=== PATIENT | male | born 1950 | race Caucasian/White ===

== ENCOUNTER → 2016-10-06 | Outpatient (CLI) | payer MEDICARE, OTHER ==
[~2016-10-06] MED LIST: ASCO10007 PO; BUDE10.2 INH; CHOL500015 PO; FISH12002 PO; GABA300C10 PO; IBUP200C8 PO; METH10003 PO; OXYC5CAP4 PO; PRED20TA PO; PRED5TAB PO; TRAM50TA2 PO; magnesium PO; vitamin b12 SL; zinc PO
== END | disposition home or self-care (01) ==
LOC: CFH 07:26
PROVIDERS: ATTEND Family Medicine
DX: I08.1 Rheumatic disorders of both mitral and tricuspid valves (principal); I37.1 Nonrheumatic pulmonary valve insufficiency
CPT/HCPCS: 93306

== ENCOUNTER → 2017-06-26 | Outpatient (CLI) | payer MEDICARE, OTHER ==
[~2017-06-26] MED LIST changes: +ASCO100019 PO; -ASCO10007 PO; +OXYC5CAP2 PO; -OXYC5CAP4 PO
== END | disposition home or self-care (01) ==
LOC: CFH 09:27
PROVIDERS: ATTEND Otolaryngology Facial Plastic Surgery
DX: J34.89 Other specified disorders of nose and nasal sinuses (principal)
CPT/HCPCS: 70486

== ENCOUNTER → 2017-08-24 | Outpatient (CLI) | payer MEDICARE, OTHER ==
[~2017-08-24] MED LIST changes: +CLOM50TA2 PO; +FINA5TAB4 PO; +LISI-167 PO; +TAMS-11 PO; +VITA1TAB19 PO; +[UNRECOGNIZED DRUG - REMARK] PO
[2017-08-24 10:41] LABS: MICROSCOPIC NOT IND
[2017-08-24 10:42] LABS: BASOPHILS # (AUTO) 0.06 x10^3/uL (0-0.1); BASOPHILS % (AUTO) 1 % (0-1); EOSINOPHILS # (AUTO) 0.29 x10^3/uL (0-0.4); EOSINOPHILS % (AUTO) 3 % (1-7); LYMPHOCYTES # (AUTO) 3.11 x10^3/uL (1-3.4); LYMPHOCYTES % (AUTO) 34 % (22-44); MD NO; MEAN CORPUSCULAR HEMOGLOBIN 31.9 pg (27.5-34.5); MEAN CORPUSCULAR HGB CONC 32.9 g/dL (33.2-36.2); MEAN CORPUSCULAR VOLUME 97.1 fL (81-97); MEAN PLATELET VOLUME 7.9 fL (7.4-10.4); MONOCYTES # (AUTO) 0.91 x10^3/uL (0.2-0.8); MONOCYTES % (AUTO) 10 % (2-9); NEUTROPHILS # (AUTO) 4.78 x10^3/uL (1.8-6.8); NEUTROPHILS % (AUTO) 52 % (42-75); PLATELET COUNT 280 x10^3/uL (130-400); RED BLOOD COUNT 4.78 x10^6/uL (4.38-5.82)
[2017-08-24 10:45] LABS: CULTURE INDICATED? NO
[2017-08-24 10:57] LABS: ALBUMIN 3.3 g/dL (3.4-5.0); ANION GAP 6 mmol/L (5-15); CALCIUM 8.4 mg/dL (8.5-10.1); CHLORIDE 108 mmol/L (98-107)
[2017-08-24 11:01] LABS: ALANINE AMINOTRANSFERASE 28 U/L (12-78); ALKALINE PHOSPHATASE 54 U/L (45-117); BILIRUBIN,TOTAL 0.5 mg/dL (0.2-1.0); CREATININE 0.83 mg/dL (0.7-1.3); TOTAL PROTEIN 6.9 g/dL (6.4-8.2)
== END | disposition home or self-care (01) ==
LOC: STAR 09:26
PROVIDERS: ATTEND Orthopaedic Surgery
DX: M17.11 Unilateral primary osteoarthritis, right knee (principal)
CPT/HCPCS: 36415; 80053; 81003; 85025; 87081

== ENCOUNTER 2017-09-02 06:59 | Inpatient (IN) | payer MEDICARE, OTHER ==
[2017-08-24 10:01] VITALS: BP 137/88
[~2017-09-02] VITALS: Ht 175.3 cm; Wt 95.9 kg
[2017-09-02] MEDS ORDERED: LACTATED RINGERS 1,000 ML IV SCH (07:29)
[2017-09-02] MEDS ORDERED: FENTANYL PF 100 MCG/2ML ONE (07:39)
[2017-09-02] MEDS ORDERED: MIDAZOLAM 1 MG/ML, 2ML ONE (07:39)
[2017-09-02] MEDS ORDERED: KETOROLAC 60 MG/2 ML ONE (09:27)
[2017-09-02] MEDS ORDERED: TRANEXAMIC ACID 100 MG/ML, 10ML ONE (09:28)
[2017-09-02] MEDS ORDERED: VANCOMYCIN 1,000 MG ONE (09:28)
[2017-09-02] MEDS ORDERED: ROPIvacaine/PF 0.2%, 20 ML ONE (09:28)
[2017-09-02] MEDS ORDERED: SODIUM CHLORIDE 0.9% 100 ML ONE (09:28)
[2017-09-02] MEDS ORDERED: EPINEPHRINE 1 MG/ML, 1ML ONE (09:28)
[2017-09-02] MEDS ORDERED: PHENYLEPHRINE 10 MG/ML ONE (09:36)
[2017-09-02] MEDS ORDERED: EPHEDRINE 50 MG/ML, 1ML ONE (09:36)
[2017-09-02] MEDS ORDERED: LABETALOL 5MG/ML, 20ML IV PRN (10:30)
[2017-09-02] MEDS ORDERED: FENTANYL PF 100 MCG/2ML IV PRN (10:30)
[2017-09-02] MEDS ORDERED: MIDAZOLAM 1 MG/ML, 2ML IV PRN (10:30)
[2017-09-02] MEDS ORDERED: OXYcodone 5 MG/5 ML ORAL.SOL UDC PO PRN (10:30)
[2017-09-02] MEDS ORDERED: METOCLOPRAMIDE 5 MG/ML, 2ML IV PRN (10:30)
[2017-09-02] MEDS ORDERED: PROMETHAZINE 12.5 MG SUPP PR PRN ×2 (10:30→11:30)
[2017-09-02] MEDS ORDERED: MEPERIDINE/PF 25MG/0.5ML IVPush PRN (10:30)
[2017-09-02] MEDS ORDERED: ACETAMINOPHEN 325 MG TABLET PO PRN (10:30)
[2017-09-02] MEDS ORDERED: ALBUTEROL/IPRATROPIUM 2.5MG/0.5MG, 3 ML NPPB PRN (10:30)
[2017-09-02] MEDS ORDERED: hydrALAzine 20 MG/ML, 1ML IV PRN (10:30)
[2017-09-02] MEDS ORDERED: ONDANSETRON 2MG/ML, 2ML IVPush PRN (10:30)
[2017-09-02] MEDS ORDERED: HYDROmorphone 1 MG/ML, 1ML IV PRN (10:30)
[2017-09-02] MEDS ORDERED: DIAZEPAM 5 MG/ML, 2ML IVPush PRN (10:30)
[2017-09-02] MEDS ORDERED: PROPOFOL 10 MG/ML, 20ML ONE (10:47)
[2017-09-02] MEDS ORDERED: ONDANSETRON 2MG/ML, 2ML ONE (10:47)
[2017-09-02] MEDS ORDERED: DEXAMETHASONE 4 MG/ML, 1ML ONE (10:47)
[2017-09-02] MEDS ORDERED: CEFAZOLIN 1,000 MG ONE (10:47)
[2017-09-02] MEDS ORDERED: PROPOFOL 50 ML ONE (10:52)
[2017-09-02] MEDS ORDERED: LIDOCAINE-MPF 2% ,5ML ONE (10:54)
[2017-09-02] MEDS ORDERED: BISACODYL 10 MG SUPP PR PRN (11:30)
[2017-09-02] MEDS ORDERED: LORazepam 1MG TABLET PO PRN (11:30)
[2017-09-02] MEDS ORDERED: ALUMINUM/MAG/SIMETHICONE 30 ML UDC PO PRN (11:30)
[2017-09-02] MEDS ORDERED: DIPHENHYDRAMINE 25 MG CAPSULE PO PRN (11:30)
[2017-09-02] MEDS ORDERED: MAGNESIUM HYDROXIDE 8%, 30ML UDC PO PRN (11:30)
[2017-09-02] MEDS ORDERED: PROMETHAZINE 25 MG/ML, 1ML IM PRN (11:30)
[2017-09-02] MEDS ORDERED: ONDANSETRON 4 MG TABLET PO PRN (11:30)
[2017-09-02] MEDS: ACETAMINOPHEN 650 MG/20.3 ML UDC PO SCH ×2 (11:30→19:30)
[2017-09-02] MEDS ORDERED: ONDANSETRON 2MG/ML, 2ML IV PRN (11:30)
[2017-09-02] MEDS ORDERED: SENNA/DOCUSATE TABLET PO PRN (11:30)
[2017-09-02] MEDS ORDERED: TRANEXAMIC ACID 1,000 MG in SODIUM CHLORIDE 0.9% 100 ML IVPB ONE (11:30)
[2017-09-02] MEDS ORDERED: DIAZEPAM 5 MG TABLET PO PRN (11:30)
[2017-09-02] MEDS ORDERED: ACETAMINOPHEN 650 MG/20.3 ML UDC ONE (11:44)
[2017-09-02] MEDS: OXYcodone IR 5MG TABLET PO PRN ×2 (13:58→20:51)
[2017-09-02] MEDS: D5%-0.45% NACL 1,000 ML IV SCH ×2 (14:36→22:06)
[2017-09-02] MEDS ORDERED: HYDROmorphone 2 MG/ML, 1ML ONE ×3 (15:50→23:06)
[2017-09-02] MEDS: HYDROmorphone 1 MG/ML, 1ML IV PRN ×3 (15:56→23:21)
[2017-09-02] MEDS: CEFAZOLIN PMX 2GM/50ML 50 ML IVPB SCH (18:34)
[2017-09-02] MEDS: ASPIRIN 81 MG TABLET EC PO SCH (18:34)
[2017-09-02] MEDS ORDERED: ZOLPIDEM 5MG TABLET PO PRN (21:00)
[2017-09-02 21:49] VITALS: BP 143/74
[2017-09-02] MEDS: DOCUSATE 100 MG CAPSULE PO SCH (23:20)
[2017-09-03] MEDS ORDERED: HYDROmorphone 2 MG/ML, 1ML ONE ×2 (01:33→03:15)
[2017-09-03] MEDS: HYDROmorphone 1 MG/ML, 1ML IV PRN ×2 (01:50→03:19)
[2017-09-03] MEDS: OXYcodone IR 5MG TABLET PO PRN ×3 (01:50→10:00)
[2017-09-03 03:07] VITALS: BP 135/75
[2017-09-03] MEDS: CEFAZOLIN PMX 2GM/50ML 50 ML IVPB SCH (03:19)
[2017-09-03] MEDS: ACETAMINOPHEN 650 MG/20.3 ML UDC PO SCH (03:30)
[2017-09-03] MEDS: ASPIRIN 81 MG TABLET EC PO SCH (05:51)
[2017-09-03] MEDS ORDERED: DEXAMETHASONE 4 MG/ML, 1ML IVPush SCH (06:00)
[2017-09-03] MEDS: D5%-0.45% NACL 1,000 ML IV SCH (07:12)
[2017-09-03] MEDS: DOCUSATE 100 MG CAPSULE PO SCH (09:00)
[2017-09-03] MEDS ORDERED: KETOROLAC 30 MG/1 ML IV SCH (11:30)
[2017-09-03 11:45] VITALS: BP 145/77
== END 2017-09-03 12:35 | disposition home or self-care (01) | DRG 470 ==
LOC: ORIP 06:59 → 4NOR 12:45 → DCLOUNGE 09-03 12:25
PROVIDERS: ADMIT Orthopaedic Surgery; ATTEND Orthopaedic Surgery
PROC: 0SRC0J9 Replacement of Right Knee Joint with Synthetic Substitute, Cemented, Open Approach (ICD-10-PCS; principal; 2017-09-02 10:00)
DX: M17.11 Unilateral primary osteoarthritis, right knee (principal); I10 Essential (primary) hypertension; J45.909 Unspecified asthma, uncomplicated; N40.0 Benign prostatic hyperplasia without lower urinary tract symptoms; Z79.899 Other long term (current) drug therapy
CPT/HCPCS: 36415; 85018; C1713; J0171; J0690; J1100; J1170; J1885; J2250; J2405; J2704; J2795; J3010; J3370; J3490; C1776; J2370; J7120

== ENCOUNTER 2018-10-12 08:46 | Outpatient (CLI) | payer MEDICARE, OTHER ==
[~2018-10-12 08:46] MED LIST changes: +AMLO-150 PO; +CLIN150C14 PO; +CLOM50TA17 PO; -CLOM50TA2 PO; +MAGN400T7 PO; +VITA40TA PO
== END 2018-10-12 23:59 | disposition home or self-care (01) ==
LOC: STAR 08:46
PROVIDERS: ATTEND Surgery
DX: Z02.9 Encounter for administrative examinations, unspecified (principal)

== ENCOUNTER 2018-10-21 07:10 | Day surgery (SDC) | payer MEDICARE, OTHER ==
[~2018-10-21] VITALS: Ht 172.7 cm; Wt 90.8 kg
[2018-10-21] MEDS ORDERED: LACTATED RINGERS 1,000 ML IV SCH ×2 (07:17→09:51)
[2018-10-21] MEDS ORDERED: MIDAZOLAM 1 MG/ML, 2ML ONE (07:24)
[2018-10-21] MEDS ORDERED: FENTANYL PF 250 MCG/5ML ONE (07:24)
[2018-10-21 07:37] VITALS: BP 145/85
[2018-10-21] MEDS ORDERED: SUCCINYLCHOLINE 20 MG/ML, 10ML ONE (08:18)
[2018-10-21] MEDS ORDERED: ROCURONIUM 10 MG/ML,10ML ONE (08:18)
[2018-10-21] MEDS ORDERED: CEFAZOLIN 1,000 MG ONE (08:18)
[2018-10-21] MEDS ORDERED: GLYCOPYRROLATE 0.2MG/1ML, 5ML ONE (08:18)
[2018-10-21] MEDS ORDERED: BUPIVACAINE/PF-EPI 0.5% 1:200K ONE (08:33)
[2018-10-21] MEDS ORDERED: PROMETHAZINE 25 MG/ML, 1ML IV PRN (09:00)
[2018-10-21] MEDS ORDERED: KETOROLAC 30 MG/1 ML IV PRN (09:00)
[2018-10-21] MEDS ORDERED: hydrALAzine 20 MG/ML, 1ML IV PRN (09:00)
[2018-10-21] MEDS ORDERED: ONDANSETRON 2MG/ML, 2ML IVPush PRN ×2 (09:00→10:00)
[2018-10-21] MEDS ORDERED: MEPERIDINE/PF 25MG/0.5ML IVPush PRN (09:00)
[2018-10-21] MEDS ORDERED: ALBUTEROL SULFATE 2.5 MG/3 ML NPPB PRN (09:00)
[2018-10-21] MEDS ORDERED: OXYcodone 5 MG/5 ML ORAL.SOL UDC PO PRN (09:00)
[2018-10-21] MEDS ORDERED: LABETALOL 5MG/ML, 20ML IV PRN (09:00)
[2018-10-21] MEDS ORDERED: METOCLOPRAMIDE 5 MG/ML, 2ML IV PRN (09:00)
[2018-10-21] MEDS ORDERED: FENTANYL PF 100 MCG/2ML ONE (09:56)
[2018-10-21] MEDS ORDERED: OXYcodone 5 MG/5 ML ORAL.SOL UDC ONE (09:57)
[2018-10-21] MEDS ORDERED: HYDROmorphone 2 MG/ML, 1ML ONE (09:57)
[2018-10-21] MEDS: FENTANYL PF 100 MCG/2ML IV PRN ×2 (09:59→10:10)
[2018-10-21] MEDS ORDERED: morphine SULFATE 10 MG/ML, 1ML IVPush PRN (10:00)
[2018-10-21] MEDS ORDERED: OXYcodone/APAP 5/325MG TABLET PO PRN (10:00)
[2018-10-21] MEDS: HYDROmorphone 1 MG/ML, 1ML INJ IV PRN ×2 (10:25→10:40)
[2018-10-21] MEDS ORDERED: PROPOFOL 50 ML ONE (11:17)
== END 2018-10-21 12:35 | disposition home or self-care (01) ==
LOC: OUT 07:10 → UNDOADMOB 09:51 → ORIP 09:51 → OUT 12:35
PROVIDERS: ATTEND Surgery
DX: K40.90 Unilateral inguinal hernia, without obstruction or gangrene, not specified as recurrent (principal); K42.9 Umbilical hernia without obstruction or gangrene; J45.909 Unspecified asthma, uncomplicated; N40.0 Benign prostatic hyperplasia without lower urinary tract symptoms; I10 Essential (primary) hypertension; Z98.890 Other specified postprocedural states; Z72.89 Other problems related to lifestyle; Z87.891 Personal history of nicotine dependence
CPT/HCPCS: 49585; 49650; C1727; C1781; J0330; J0690; J1170; J2250; J2704; J3010; J3490; J7120

== ENCOUNTER 2019-05-12 09:37 | Outpatient (CLI) | payer MEDICARE, OTHER | END 2019-05-12 23:59 | disposition home or self-care (01) | LOC: CFH 09:37 | PROVIDERS: ATTEND Internal Medicine Cardiovascular Disease | DX: I08.1 Rheumatic disorders of both mitral and tricuspid valves (principal); I10 Essential (primary) hypertension | CPT/HCPCS: 0399T; 93306 ==

== ENCOUNTER → 2020-11-07 | Outpatient (CLI) | payer MEDICARE ==
[~2020-11-07] MED LIST changes: -CLIN150C14 PO; +CLIN150C15 PO; -MAGN400T7 PO; +MAGN400T9 PO
== END | disposition home or self-care (01) ==
LOC: CFH 13:18
PROVIDERS: ATTEND Chiropractor
DX: M48.061 Spinal stenosis, lumbar region without neurogenic claudication (principal); M51.26 Other intervertebral disc displacement, lumbar region; M48.56XA Collapsed vertebra, not elsewhere classified, lumbar region, initial encounter for fracture; M47.816 Spondylosis without myelopathy or radiculopathy, lumbar region
CPT/HCPCS: 72148